=== PATIENT | female | born 1980 | race Caucasian/White ===

== ENCOUNTER → 2024-03-11 13:13 | Outpatient (REF) | payer BC, SELFPAY ==
[2024-03-11 13:51] LABS: % Basophils 1.4 % (0-2); % Eosinophils 2.4 % (0-6); % Immature Granulocytes 0.1 % (0-0.5); % Lymphocytes 31.6 % (20.5-51.1); % Monocytes 5.4 % (1.7-9.3); % Neutrophils 59.1 % (42.2-75.2); Absolute Basophils 0.1 10^3/uL (0-0.2); Absolute Eosinophils 0.2 10^3/uL (0-0.7); Absolute Lymphocytes 2.2 10^3/uL (1.2-3.4); Absolute Monocytes 0.4 10^3/uL (0.1-0.6); Absolute Neutrophils 4.2 10^3/uL (1.4-6.5); Hematocrit 41.2 % (37.0-47.0); Hemoglobin 14.2 g/dL (12.0-16.0); Mean Corp Hgb Conc. 34.5 g/dL (33.0-37.0); Mean Corpuscular Hgb 29.8 pg (27.0-31.0); Mean Corpuscular Volume 86.4 fL (81.0-99.0); Mean Platelet Volume 9.2 fL (7.4-10.4); Nucleated Red Blood Cells % 0 %; Platelet Count 354 10^3/uL (130-400); Red Blood Cell Count 4.77 10^6/uL (4.20-5.40); Red Cell Dist. Width 12.7 % (11.5-14.5); White Blood Cell Count 7.1 10^3/uL (4.8-10.8)
[2024-03-11 14:14] LABS: ALT (SGPT) 19 U/L (0-35); AST (SGOT) 22 U/L (14-36); Albumin 4.8 g/dl (3.5-5.0); Alkaline Phosphatase 65 U/L (38-126); Blood Urea Nitrogen 12 mg/dl (7-17); Calcium 9.9 mg/dl (8.4-10.2); Carbon Dioxide 26 mmol/L (22-30); Chloride 101 mmol/L (98-107); Glucose 85 mg/dl (70-99); HDL Cholesterol 85 mg/dl; LDL Cholesterol, Calculated 143 mg/dl; Potassium 4.9 mmol/L (3.5-5.1); Sodium 140 mmol/L (135-145); Total Bilirubin 1.3 mg/dl (0.2-1.3); Total Cholesterol 245 mg/dl (50-199); Total Protein 7.4 g/dl (6.3-8.2); Triglyceride 88 mg/dl (10-149); Very Low Density Lipoprotein 17 mg/dl (0-30); eGFR > 60.00
[2024-03-11 14:43] LABS: TSH Reflex To Free T4 0.67 uIU/ml (0.47-4.68)
[2024-03-14 03:31] LABS: Vitamin D 1,25 Dihydroxy 51.4 pg/mL (19.9-79.3)
== END ==
LOC: REG 13:13
PROVIDERS: ATTENDING PHYSICIAN Family Medicine
DX: E55.9 Vitamin D deficiency, unspecified (principal); Z00.00 Encounter for general adult medical examination without abnormal findings; R53.83 Other fatigue; D69.6 Thrombocytopenia, unspecified
CPT/HCPCS: 36415; 80053; 80061; 82652; 84443; 85025

== ENCOUNTER → 2025-04-04 14:27 | Outpatient (REF) | payer BC, SELFPAY | LOC: DHSLP 14:27 | PROVIDERS: ATTENDING PHYSICIAN Family Medicine | DX: G47.19 Other hypersomnia (principal); R06.83 Snoring | CPT/HCPCS: 95800 ==